=== PATIENT | female | born 1995 | race Caucasian/White ===

== ENCOUNTER 2018-06-28 00:08 | Emergency (ER) | payer SELFPAY ==
[~2018-06-28 00:08] MED LIST: AMOX-559 PO; AUG500 PO; HYDR-3083 PO; HYDR-653 PO; LOR5/325 PO; NO ROUTINE MEDS
--- NOTE | 2018-06-28 00:14 | ER Report ---
History and Physical Time Seen By MD: 00:13 HPI/ROS CHIEF COMPLAINT: Headache HISTORY OF PRESENT ILLNESS: 22-year-old female presents ambulatory to the ER complaining of sudden onset of a headache around 10 PM. She noted scotoma in her right eye visual field. She states the headache started in her right neck and spread to the right side of her head. She also had some slurred speech noted by her mom. Patient also notes some right arm numbness that has resolved. Mom reports there is a family history of migraines. The patient's never had a migraine before. Patient's on a control. Patient notes nausea and photophobia. She denies stiff neck, fever, chills or recent URI. REVIEW OF SYSTEMS: Respiratory: No cough, no dyspnea. Cardiovascular: No chest pain, no palpitations. Gastrointestinal: No vomiting, no abdominal pain. Musculoskeletal: No back pain. Allergies: Coded Allergies: No Known Allergies (Verified Allergy, Mild, 08/13/16) Home Meds Active Scripts Ondansetron Hcl (ZOFRAN) 4 Mg Tablet, 4 MG PO Q6H PRN for NAUSEA/VOMITING, #10 Prov:DOMENICO VALLEJO DO 06/28/18 Past Medical/Surgical History Patient has a past medical history of frequent UTIs, fracture left foot. Patient has a surgical history of bilateral tubes. Patient denies any pertinent family medical history except mom has migraine headaches. Reviewed Nurses Notes: Yes Old Medical Records Reviewed: Yes Hx Smoking: No Smoking Status: Former Smoker Exposure to Second Hand Smoke?: Yes (AT HOME) Constitutional Vital Sign - Last 24 Hours 06/28/18 06/28/18 06/28/18 06/28/18 00:11 00:23 00:30 00:53 Temp 98.5 Pulse 67 84 ??? Resp 16 B/P (MAP) 135/87 105/77 (86) Pulse Ox 93 93 O2 Delivery Room Air Physical Exam General Appearance: The patient is alert, has no immediate need for airway protection and no current signs of toxicity. Vital signs stable, afebrile, pulse ox normal HEENT: Pupils equal and round no injection. PERRLA, EOMI, TMs normal, TMJs nontender, oropharynx without redness or exudate Respiratory: Chest is non tender, lungs are clear to auscultation. Cardiac: regular rate and rhythm Gastrointestinal: Abdomen is soft and non tender, no masses, bowel sounds normal. Musculoskeletal: Neck: Neck is supple and non tender. No meningismus, no lymphadenopathy Extremities have full range of motion and are non tender. Skin: No rashes or lesions. 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 Medical Decision Making EKG/Imaging Imaging Results: CT scan of the head without contrast was obtained. The results of the study are HEAD CT: Indication: Slurred speech. Suspected migraine headache. Technique: Contiguous axial sections were obtained from the base to the vertex without contrast enhancement. One of the following dose optimization techniques was utilized in the performance of this exam: Automated exposure control; adjustment of the mA and/or kV according to the patient's size; or use of an iterative reconstruction technique. Specific details can be referenced in the facility's radiology CT exam operational policy. Comparison: None available. Findings: There is no evidence of intra-axial or extra-axial hemorrhage. No focal areas of decreased or increased attenuation are identified. There is no evidence of mass, edema, or shift of the midline structures. The size, shape, and configuration of the ventricular system are normal. The skeletal structures are intact and unremarkable. The visualized paranasal sinuses and mastoid air cells are clear. Impression: Unremarkable unenhanced head CT. The study was read by the radiologist. I viewed the images myself on the PACS system. ED Course/Re-evaluation ED Course Patient was admitted to an examination room. H&P was done. The differential diagnoses was considered. On clinical examination. Patient has a nonfocal neurologic examination. Her headache is improving on arrival. She took Tylenol 2 hours prior to arrival. She did have some slurred speech or. Mom was concerned it might be a stroke. A CT scan was ordered. Patient was medicated with Zofran and ibuprofen orally. Her headache is much improved on reevaluation. Her CAT scan is negative. Results are discussed with the patient and her mother. They're advised to follow-up with primary care for further treatment of migraine headaches. Decision to Disposition Date: Jun 28, 2018 Decision to Disposition Time: 00:53 Depart Departure Latest Vital Signs Vital Signs Date Time Temp Pulse Resp B/P (MAP) Pulse Ox O2 Delivery O2 Flow Rate FiO2 06/28/18 00:53 ??? 93 06/28/18 00:30 105/77 (86) 06/28/18 00:11 98.5 16 Room Air Impression: Primary Impression: Migraine headache Condition: Improved Disposition: HOME OR SELF-CARE Referrals: LUKE DUKES MD, FARRUKH MD New Scripts Ondansetron Hcl (ZOFRAN) 4 Mg Tablet 4 MG PO Q6H PRN for NAUSEA/VOMITING, #10 Prov: DOMENICO VALLEJO DO 06/28/18 Patient Instructions: Migraine Headache (ED) Additional Instructions: Follow-up with your primary care physician for further treatment of any migraines Problem Qualifiers Primary Impression: Migraine headache Migraine type: unspecified Status migrainosus presence: without status migrainosus Intractability: not intractable Qualified Codes: G43.909 - Migraine, unspecified, not intractable, without status migrainosus DOMENICO VALLEJO DO Jun 28, 2018 00:14
[2018-06-28] MEDS ORDERED: ONDANSETRON 4 MG ODT TABDP SL ONE (00:25)
[2018-06-28] MEDS ORDERED: IBUPROFEN 600 MG TAB PO ONE (00:25)
[2018-06-28] MEDS ORDERED: ONDA4TAB97 PO (00:57)
[2018-06-28 01:00] VITALS: BP 108/67
--- NOTE | 2018-06-28 01:03 | RADIOLOGY IMAGING REPORT ---
FACILITY: [facility] PATIENT NAME: Jazmyne Ulloa : 1995 MR: [id number] V: [id number] EXAM DATE: ORDERING PHYSICIAN: DOMENICO VALLEJO TECHNOLOGIST: Location: [facility] - [place] Patient: Jazmyne Ulloa : 1995 Visit/Account:[id number] Date of Sevice: 06/28/[address]: Indication: Slurred speech. Suspected migraine headache. Technique: Contiguous axial sections were obtained from the base to the vertex without contrast enhan cement. One of the following dose optimization techniques was utilized in the performance of this exam: Autom ated exposure control; adjustment of the mA and/or kV according to the patient's size; or use of an i terative reconstruction technique. Specific details can be referenced in the facility's radiology CT exam operational policy. Comparison: None available. Findings: There is no evidence of intra-axial or extra-axial hemorrhage. No focal areas of decreased or increased attenuation are identified. There is no evidence of mass, edema, or shift of the midline structures. The size, shape, and configuration of the ventricular system are normal. The skeletal st ructures are intact and unremarkable. The visualized paranasal sinuses and mastoid air cells are indy r. Impression: Unremarkable unenhanced head CT. Report Dictated By: Jose Daniel Lara MD at 06/28/2018 12:55 AM Report E-Signed By: Jose Daniel Lara MD at 06/28/2018 12:58 AM [id number]
== END 2018-06-28 01:11 | disposition home or self-care (01) ==
LOC: ER 01:00
DX: G43.909 Migraine, unspecified, not intractable, without status migrainosus (principal)
CPT/HCPCS: 70450; 99284; S0119